=== PATIENT | male | born 1955 | race Caucasian/White ===

== ENCOUNTER 2018-03-05 14:04 | Inpatient (IN) | payer OTHER ==
[~2018-03-05] VITALS: Ht 172.7 cm; Wt 86.8 kg
[2018-03-05 15:04] LABS: ABSOLUTE BASOPHIL COUNT 0 /CUMM (0.0-0.2); ABSOLUTE EOSINOPHIL COUNT 0.1 /CUMM (0.0-0.7); ABSOLUTE GRANULOCYTE CT 3.6 /CUMM (1.4-6.5); ABSOLUTE LYMPH COUNT 1.3 /CUMM (1.2-3.4); ABSOLUTE MONOCYTE COUNT 0.4 /CUMM (0.10-0.60); BASOPHIL % 0.7 % (0.0-2.0); EOSINOPHIL % 1.9 % (0-5); GRANULOCYTE % 65.5 % (42.2-75.2); HEMATOCRIT 39.4 % (42-52); MEAN CORPUSCULAR HGB 33.4 PG (27.0-31.0); MEAN CORPUSCULAR HGB CONC 33.7 G/DL (33.0-37.0); MEAN CORPUSCULAR VOLUME 99.1 FL (80.0-94.0); MEAN PLATELET VOLUME 7.3 FL (7.4-10.4); PLATELET COUNT 267 /CUMM (130-400); RBC DISTRIBUTION WIDTH 15.9 % (11.5-14.5); RED BLOOD CELL CT 3.98 /CUMM (4.70-6.10); WHITE BLOOD CELL COUNT 5.5 /CUMM (4.8-10.8)
[2018-03-05 16:31] VITALS: BP 154/84
[2018-03-05 18:47] VITALS: BP 188/94
[2018-03-05] MEDS ORDERED: PROAIR HFA8.5 GM INH (18:51)
[2018-03-05] MEDS ORDERED: SERTRALINE HCL100 MG PO (18:56)
--- NOTE | 2018-03-05 21:05 | ED GENERAL ADULT ---
History of Present Illness General Chief Complaint: Psychiatric Related Complaint Stated Complaint: WANTS TO DETOX FROM ALCOHOL Vital Signs & Intake/Output Vital Signs & Intake/Output Vital Signs Date Time Temp Pulse Resp B/P B/P Pulse O2 O2 Flow FiO2 Mean Ox Delivery Rate 07 1322 97.9 64 18 153/93 07/05 1316 97.9 64 18 152/93 97 07/05 1125 98.0 71 18 144/77 07/05 1123 98.0 71 18 144/77 95 07/05 0900 98.2 77 20 134/70 07/05 0900 98.2 77 20 134/70 96 Room Air 07/05 0700 97.3 86 18 170/90 07/05 0659 98.2 86 18 170/90 97 Room Air 07/05 0400 98.3 79 18 173/95 07/05 0400 98.3 79 18 173/95 97 Room Air 07/05 0038 98.3 79 24 164/84 98 Room Air 07/05 0013 98.3 79 18 164/84 07/04 2214 98.4 90 18 180/93 99 Room Air 07/04 2213 98.4 90 18 180/93 07/04 1847 99.1 76 20 188/94 07/04 1841 99.1 76 20 188/94 98 Room Air 07/04 1631 99.3 74 22 154/84 07/04 1629 99.3 74 22 154/84 95 Room Air 07/04 1537 95 Room Air Room Air ED Intake and Output 07/ 0000 07/04 1200 Intake Total 60 Output Total Balance 60 Intake, Oral 60 Patient 195 lb Weight Weight Reported by Patient Measurement Method Allergies Coded Allergies: No Known Allergies (03/05/18) Reconcile Medications Albuterol Sulfate (Proair Hfa) 90 MCG HFA.AER.AD 2 PUF INH Q4-6 PRN PRN BREATHING (Reported) Amlodipine Besylate 5 MG TABLET 5 MG PO DAILY BLOOD PRESSURE . Folic Acid 1 MG TABLET 1 MG PO DAILY ETOH . LORazepam (Ativan) 1 MG TAB 1 TAB PO BID ETOH DETOX TAKE ONE PILL TONIGHT 03/08/2018 ON 03/09/2018, TAKE ONE PILL IN AM, ONE AT NIGHT ON 03/10/2018, TAKE ONE PILL IN AM AND THEN STOP. Multivitamin (One Daily Multivitamin) 1 EACH TABLET 1 TAB PO DAILY ETOH . Sertraline HCl 100 MG TABLET 1 TAB PO DAILY UNKNOWN (Reported) Thiamine HCl (Vitamin B-1) 100 MG TABLET 100 MG PO DAILY ETOH DETOX . Triage Note: PT REQUEST DETOX FROM ETOH. STATES LAST DRINK 2 DAYS AGO. PT STATES HX OF WITHDRAWL SEIZURES. DENIES SI/HI HPI: 62-year-old male with history of EtOH abuse presenting for EtOH detox. Reports that on average he drinks 1 pint of vodka daily./Drink was 2 days ago. Patient has a history of withdrawal seizures. No history of DTs. Denies any seizures in the last 2 days. Denies SI or HI. Denies pain or trauma. (Torie Conti) Past History Travel History Traveled to [place] past 21 day No Medical History Musculoskeletal: BACK PAIN Psychosocial History What is your primary language Lithuanian Tobacco Use: Never used ETOH Use: alcoholic Illicit Drug Use: denies illicit drug use (Torie Conti) Progress Plan of Care: Orders Procedure Date/time Status Regular Diet 03/06 D Active Misc Message 03/06 145 Active ED Holding Orders 03/06 145 Active Vital Signs 03/06 145 Active Code Status 03/06 145 Active Admit to inpatient 03/06 1450 Active Pathway - chart 03/06 0807 Active CASE MANAGEMENT CONSULT 03/05 2316 Active Current Medications Sig/Pamella Start time Last Medication Dose Stop Time Status Admin Lorazepam 2 MG Q2P PRN 03/06 0815 UNVr 03/06 (Ativan) 1325 Lorazepam 1 MG Q2P PRN 03/06 0815 UNVr (Ativan) Albuterol Sulfate 2 PUF Q4 03/06 0200 UNVr 03/06 (Ventolin) 1325 Laboratory Tests 03/06/18 0400: Urine Opiates Screen < 100, Methadone Screen 45, Barbiturate Screen < 60, Ur Phencyclidine Scrn < 6.00, Amphetamines Screen < 100, U Benzodiazepines Scrn > 800 H, Urine Cocaine Screen < 50, Urine Cannabis Screen < 5.00 03/05/18 1455: Anion Gap 14, Estimated GFR > 60, BUN/Creatinine Ratio 15.0, Glucose 91, Calcium 9.2, Magnesium 1.8, Total Bilirubin 0.4, AST 100 H, ALT 58, Alkaline Phosphatase 117, Total Protein 7.4, Albumin 4.2, Globulin 3.2, Albumin/Globulin Ratio 1.3, CBC w Diff NO MAN DIFF REQ, RBC 3.98 L, MCV 99.1 H, MCH 33.4 H, MCHC 33.7, RDW 15.9 H, MPV 7.3 L, Gran % 65.5, Lymphocytes % 23.9, Monocytes % 8.0, Eosinophils % 1.9, Basophils % 0.7, Absolute Granulocytes 3.6, Absolute Lymphocytes 1.3, Absolute Monocytes 0.4, Absolute Eosinophils 0.1, Absolute Basophils 0, Serum Alcohol 97.0 (Torie Conti) Comments: 03/06/18 7:00am pt signed out to me by dr pak at shift changeover. (Lou GOOD,Fuentes Nichols) Departure Departure Condition: Stable Referrals: Chris GOOD,Nata Meléndez (PCP/Family) Departure Forms: Customer Survey General Discharge Information Prescriptions: Current Visit Scripts LORazepam (Ativan) 1 TAB PO BID #4 TAB TAKE ONE PILL TONIGHT 03/08/2018 ON 03/09/2018, TAKE ONE PILL IN AM, ONE AT NIGHT ON 03/10/2018, TAKE ONE PILL IN AM AND THEN STOP. Amlodipine Besylate 5 MG PO DAILY #30 TAB . Folic Acid 1 MG PO DAILY #30 TAB . Thiamine HCl (Vitamin B-1) 100 MG PO DAILY #30 TAB . Multivitamin (One Daily Multivitamin) 1 TAB PO DAILY #30 TAB . (Torie Conti) Departure Comments pt to be signed out to dr. blake, 03/06/18, 7am. (Ady GOOD,Jerardo Grewal) Departure Disposition: STILL A PATIENT Clinical Impression Primary Impression: Alcohol withdrawal Admission Note Spoke With: Marciano GOOD,Kelsie Documentation of Exam: Documentation of any treatments & extenuating circumstances including Concerns Regarding Discharge (functional status, medication knowledge or non-compliance, living conditions, etc.) that warrant an admission rather than observation: Continued alcohol consumption places the patient at high risk of pancreatitis, pancreatic failure, liver failure and cirrhosis. In order to avoid this the patient will need to cease drinking alcohol. Patient's alcohol use places pt at high risk of seizures and delirium tremens during cessation. Patient will be at high risk of withdrawal seizures and delirium tremens (both of which can be fatal) for up to 5 days after stopping alcohol. pt will require IV Ativan to prevent these complications. pt is therefore a very poor candidate for outpatient treatment given the above concerns and treatment needs. Pt will require a multiple day hospitalization. (Lou GOOD,Fuentes Nichols) Critical Care Note Critical Care Note Critical Care Time: 30-74 min (Fuentes Blake MD)
[2018-03-05 22:13] VITALS: BP 180/93
[2018-03-06] VITALS (13 sets, daily range): BP systolic 134–173; BP diastolic 70–100
--- NOTE | 2018-03-06 15:03 | History & Physical ---
Criss GOOD,Teodoro 03/06/18 1503: General Information and HPI History of Present Illness: Mr. Salcido is a 62-year-old male with past medical history of back pain, anxiety, and COPD who presents for alcohol withdrawal. Patient has had problems with drinking for about a year and is longest period of sobriety is 7 months. He drinks half a pint of vodka and 3 beers a day. His last drink was 3 days ago. He went to [facility] and they told him to come here to [place] to be admitted. He reports some anxiety but otherwise has no chest pain, shortness breath, nausea, vomiting, diarrhea, abdominal pain, or dysuria. He has a family history of alcoholism in his father and grandfather never smoked or used other drugs. Allergies/Medications Allergies: Coded Allergies: No Known Allergies (03/05/18) Past History Travel History Traveled to [place] past 21 day No Medical History Musculoskeletal: BACK PAIN Surgical History Surgical History: non-contributory Past Family/Social History Psychosocial History ETOH Use: alcoholic Illicit Drug Use: denies illicit drug use Review of Systems Review of Systems Constitutional: Reports: no symptoms. EENTM: Reports: no symptoms. Cardiovascular: Reports: no symptoms. Respiratory: Reports: no symptoms. GI: Reports: no symptoms. Genitourinary: Reports: no symptoms. Musculoskeletal: Reports: no symptoms. Skin: Reports: no symptoms. Neurological/Psychological: Reports: see HPI. Hematologic/Endocrine: Reports: no symptoms. Immunologic/Allergic: Reports: no symptoms. All Other Systems: Reviewed and Negative Exam & Diagnostic Data Last 24 Hrs of Vital Signs/I&O Vital Signs Date Time Temp Pulse Resp B/P B/P Pulse O2 O2 Flow FiO2 Mean Ox Delivery Rate 03/06 1522 98.0 70 20 140/80 / 1522 98.0 70 20 140/80 96 Room Air 07/05 1322 97.9 64 18 153/93 07/05 1316 97.9 64 18 152/93 97 /05 1125 98.0 71 18 144/77 07/05 1123 98.0 71 18 144/77 95 07/05 0900 98.2 77 20 134/70 07/05 0900 98.2 77 20 134/70 96 Room Air 07/05 0700 97.3 86 18 170/90 07/05 0659 98.2 86 18 170/90 97 Room Air 07/05 0400 98.3 79 18 173/95 07/ 0400 98.3 79 18 173/95 97 Room Air 07/ 0038 98.3 79 24 164/84 98 Room Air 07/ 0013 98.3 79 18 164/84 / 2214 98.4 90 18 180/93 99 Room Air 03/05 2213 98.4 90 18 180/93 / 1847 99.1 76 20 188/94 07/ 1841 99.1 76 20 188/94 98 Room Air 03/05 1631 99.3 74 22 154/84 07/ 1629 99.3 74 22 154/84 95 Room Air 03/05 1537 95 Room Air Room Air Intake & Output 03/06 1600 03/06 0800 03/06 0000 Intake Total 60 Output Total Balance 60 Intake, Oral 60 Physical Exam General Appearance Alert, Oriented X3, Cooperative, No Acute Distress Cardiovascular Regular Rate, Normal S1, Normal S2 Lungs Clear to Auscultation, Normal Air Movement Abdomen Normal Bowel Sounds, Soft, No Tenderness Extremities No Edema, Normal Pulses, No Tenderness/Swelling Last 24 Hrs of Labs/Renan: Laboratory Tests 03/06/18 0400: Urine Opiates Screen < 100, Methadone Screen 45, Barbiturate Screen < 60, Ur Phencyclidine Scrn < 6.00, Amphetamines Screen < 100, U Benzodiazepines Scrn > 800 H, Urine Cocaine Screen < 50, Urine Cannabis Screen < 5.00 Assessment/Plan Assessment: Mr. Salcido is a 62-year-old male with past medical history of back pain, anxiety, and COPD who presents for alcohol withdrawal. On presentation, vital signs were T 98.7, HR 73, RR 20, BP 133/80, saturating 96 % room air. Laboratories are significant for AST 100 otherwise normal CVC and BP. Alcohol level is 97 with positive benzodiazepines. He will be admitted to general medicine and treated for the following problems: 1. Alcohol withdrawal #Alcohol withdrawal: Patient is being admitted for alcohol withdrawal. His last drink was 3 days ago. -[facility] protocol -Alcoholic vitamins -Social work consult #Chronic medical problems: -Continue other home medications DVT prophylaxis with enoxaparin Regular diet Full code As Ranked By This Provider Problem List: 1. Alcohol withdrawal Core Measures/Misc (05/19) Acute Coronary Syndrome ACS Diagnosis: No Congestive Heart Failure Congestive Heart Failure Diagnosis No Cerebrovascular Accident CVA/TIA Diagnosis: No VTE (View Protocol) VTE Risk Factors Age>40 No Mechanical VTE Prophylaxis d/t N/A MechProphylax Ordered No VTE Pharm Prophylaxis d/t NA PharmProphylax ordered Sepsis (View protocol) Sepsis Present: No If YES complete Sepsis Event Note If YES complete Sepsis Event Note Carlton More MD 03/06/18 5559: General Information and HPI Allergies/Medications Home Med list Albuterol Sulfate (Proair Hfa) 90 MCG HFA.AER.AD 2 PUF INH Q4-6 PRN PRN BREATHING (Reported) Amlodipine Besylate 5 MG TABLET 5 MG PO DAILY BLOOD PRESSURE Folic Acid 1 MG TABLET 1 MG PO DAILY ETOH LORazepam (Ativan) 1 MG TAB 1 TAB PO BID ETOH DETOX TAKE ONE PILL TONIGHT 03/08/2018 ON 03/09/2018, TAKE ONE PILL IN AM, ONE AT NIGHT ON 03/10/2018, TAKE ONE PILL IN AM AND THEN STOP. Multivitamin (One Daily Multivitamin) 1 EACH TABLET 1 TAB PO DAILY ETOH Sertraline HCl 100 MG TABLET 1 TAB PO DAILY UNKNOWN (Reported) Thiamine HCl (Vitamin B-1) 100 MG TABLET 100 MG PO DAILY ETOH DETOX Core Measures/Misc (05/19) Sepsis (View protocol) If YES complete Sepsis Event Note If YES complete Sepsis Event Note Attending MD Review Statement Attending Statement Attending MD Statement: examined this patient, discuss w/resident/PA/LUMBER CARRIER, agreed w/resident/PA/LUMBER CARRIER, reviewed EMR data (avail), amended to note Attending Assessment/Plan: The patient is a 62 yo male with h/o COPD, anxiety, chronic back pain, ETOH dependance and h/o withdrawal who presented in the [place] ED today requesting detox. His primary MD had sent him in to [facility] and they declined to admit him. They advised him to come to [facility] for detox. The patient stated he had drank for many years, however only considered it to be a problem over the last 1 year or so. He does have a h/o elevated BP with withdrawal. He stated that he had a h/o a seizure once at home (not documented). Last drink was 2 days ago. Physical Exam: VS: T 97.9, P 64, R 18, BP 153/93, PO 97% HEENT: eyes- PERRLA, EOMI, non-icteric sclera matt- dry mucosa Neck: no bruits or JVD Chest: clear Cor: RRR nl S1, S2 w/o murm Abd: BS+, sl firm, liver edge sl firm, spleen non palpable Ext: no edema Neuro: alert & oriented x 3, non-focal exam mild tremor (post Ativan) Labs/Tests- as above Impression/Plan: #EtOH Dependence and Withdrawal- as above, patient requesting detox. Not clear if he has had a seizure in past. Plan: Admit to general medicine for detox. Ativan 2 mg q6h and prn by CIWA. Thiamine, MVI, folate as per protocol. Social Service Consult. #COPD- by history. Lungs are clear at present. Uses Albuterol. Plan: Continue Albuterol and follow. #Anxiety/Depression- has been on Sertraline. Plan: Continue Sertraline. #HTN- patient states had h/o increased BP with withdrawal, however has never been on chronic meds for such. Plan: Monitor BP- expect it will decrease as patient gets through withdrawal. Plan: Anti-hypertensives to be decided depending upon clinical course.
--- NOTE | 2018-03-06 22:44 | Admission Certification ---
Admission Certification Certification Statement - As attending physician, I certify that at the time of - admission, based on clinical presentation, severity of - symptoms, need for further diagnostic testing and - therapeutic interventions, and risk of adverse outcomes - without in-hospital treatment, in my clinical assessment, - this patient requires an acute hospital stay for a minimum - of two nights or longer. I have also considered psychsocial - factors such as support system, advanced age, financial - issues, cognitive issues, and failed out-patient treatments, - past re-admission history, safety of patient, and lack of - compliance as applicable. Specific rationale supporting this admission is: The patient came in via ED requesting alcohol detox. Has h/o ?seizure in past. Needs admit for close monitoring and Ativan/CIWA, thiamine, etc. Social service consult.
[2018-03-07 05:40] VITALS: BP 160/90
--- NOTE | 2018-03-07 08:01 | PN- Housestaff ---
See Addendum Subjective Follow-up For: alcohol detox/withdrawal Complaints: no complaints Subjective: Patient has no complaints this morning. He states he slept well. He did become hypertensive overnight to a blood pressure of 180/100. He denies any symptoms including headache vision changes. He denies fever, chills, chest pain, shortness of breath, abdominal pain. Review of Systems Constitutional: Reports: see HPI. Objective Last 24 Hrs of Vital Signs/I&O Vital Signs Date Time Temp Pulse Resp B/P B/P Pulse O2 O2 Flow FiO2 Mean Ox Delivery Rate 07 1341 98.4 66 20 120/72 97 Room Air 07/06 1232 67 180/100 07/06 0540 98.4 66 20 160/90 96 Room Air 07/05 2308 98.1 62 16 162/80 07/05 2200 97.6 70 19 140/70 07/05 2119 97.6 70 19 140/70 96 Room Air 07/05 1800 97.5 69 18 172/90 07/05 1756 97.5 69 19 172/90 96 Room Air 07/05 1710 97.4 64 16 170/100 98 Room Air 07/05 1522 98.0 70 20 140/80 07/05 1522 98.0 70 20 140/80 96 Room Air Intake & Output 07/06 1600 07/06 0800 07/06 0000 Intake Total 120 1275 Output Total 100 Balance 20 1275 Intake, Oral 120 1275 Number 1 Bowel Movements Output, Urine 100 Patient 191 lb Weight Weight Bed scale Measurement Method Physical Exam General Appearance: Alert, Oriented X3, Cooperative, No Acute Distress Skin: No Rashes Skin Temp/Moisture Exam: Warm/Dry HEENT: Atraumatic, PERRLA Neck: Supple Cardiovascular: Regular Rate, Normal S1, Normal S2, No Murmurs Lungs: Clear to Auscultation, Normal Air Movement Abdomen: Normal Bowel Sounds, No Tenderness, mildly distended Neurological: slight tremor with bilateral arm extension Extremities: No Edema, Normal Pulses Assessment/Plan Assessment: 62-year-old male with past medical history significant for alcohol abuse, anxiety, COPD, and back pain admitted for alcohol withdrawal/alcohol detox. Patient reports a prior history of sobriety of 7 months before this recent relapse. He states he has a lot of stress at home with his child and that he began consuming beer and vodka; half a pint of vodka and a 6 pack of beer per day. #EtOH Withdrawal/detox -CIWA 14 at admission; 0 overnight -thiamine/folate/multivitamin #Elevated BP-likely related to etoh withdrawal -Amlodipine 5mg daily #Chronic illnesses -continue home medications DVT prophylaxis: ALPS/Ambulation/Lovenox Problem List: 1. Alcohol withdrawal Pain Ratin Pain Location: none Pain Goal: Remain pain free Pain Plan: see a/p Tomorrow's Labs & Rationales: none
[2018-03-07 13:41] VITALS: BP 120/72
[2018-03-07 21:16] VITALS: BP 132/68
[2018-03-07 21:19] VITALS: BP 132/68
[2018-03-08 06:13] VITALS: BP 148/90
--- NOTE | 2018-03-08 08:48 | PN- Housestaff ---
Sarah Amin 03/08/18 0837: Subjective Follow-up For: Alcohol withdrawal Complaints: no complaints Subjective: Pt. seen and examined at bedside. Patient has no c/o today. Denies anxiety, irritability, cravings, fever, night sweats, chills, is tolerating his diet. Pt. states he prefers to be on PRN ativan, so this way he only uses the minimum dose required. Review of Systems Constitutional: Denies: no symptoms, chills, diaphoresis, fever. EENTM: Denies: visual changes. Cardiovascular: Denies: chest pain, palpitations. Respiratory: Denies: cough, short of breath. Gastrointestinal: Denies: abdominal pain, constipation, diarrhea, nausea, vomiting. Neurological/Psychological: Denies: anxiety, confusion, emotional problems, tingling. Objective Last 24 Hrs of Vital Signs/I&O Vital Signs Date Time Temp Pulse Resp B/P B/P Pulse O2 O2 Flow FiO2 Mean Ox Delivery Rate 03/08 1621 97.7 67 18 134/76 03/08 1422 97.7 67 18 134/76 97 Room Air 03/08 0841 70 132/74 03/08 0800 Room Air 03/08 0613 98.1 56 18 148/90 96 Room Air 03/07 2119 98.0 68 132/68 97 Room Air 03/07 2116 98.0 68 18 132/68 97 Room Air Intake & Output 03/08 1600 03/08 0800 03/08 0000 Intake Total 240 130 85 Output Total Balance 240 130 85 Intake, IV 10 10 Intake, Oral 240 120 75 Physical Exam General Appearance: Alert, Oriented X3, Cooperative Skin: No Rashes Neck: Supple, No LAD Cardiovascular: Regular Rate, Normal S1, Normal S2 Lungs: Clear to Auscultation, Normal Air Movement Abdomen: Normal Bowel Sounds, Soft, No Tenderness Neurological: Normal Gait, Normal Speech, patient has slight bowing of legs, able to walk heel-to-toe little unstable Assessment/Plan Assessment: 62-year-old male with past medical history significant for alcohol abuse, anxiety, COPD, and back pain admitted for alcohol withdrawal/alcohol detox. Patient reports a prior history of sobriety of 7 months before this recent relapse. He states he has a lot of stress at home with his child and that he began consuming beer and vodka; half a pint of vodka and a 6 pack of beer per day. #EtOH Withdrawal/detox -CIWA 14 at admission; ranging from 0-6 today, mainly 0 - patient required 2 doses today -thiamine/folate/multivitamin #Elevated BP-likely related to etoh withdrawal -Amlodipine 5mg daily #Chronic illnesses -continue home medications DVT prophylaxis: ALPS/Ambulation/Lovenox Problem List: 1. Alcohol withdrawal Pain Ratin Pain Location: n/a Pain Goal: Remain pain free Pain Plan: n/a Tomorrow's Labs & Rationales: none Radha Mckeon MD 03/08/18 1735: Attending MD Review Statement Attending Statement Attending MD Statement: examined this patient, discuss w/resident/PA/ICT DEVELOPMENT MANAGER, agreed w/resident/PA/ICT DEVELOPMENT MANAGER, reviewed EMR data (avail) Attending Assessment/Plan: 62M PMH COPD, anxiety, chronic back pain, ETOH dependance and h/o withdrawal admitted with alcohol withdrawal. Patient is alert, awake, no complaints, no tremors or tongue fasciculations, stable vitals, no signs of withdrawal. Requiring PRN Ativan 1-2 times per day. Wants to go home. 1. Alcohol withdrawal, uncomplicated Plan - Stable for discharge home - Ativan 1mg PO, once , twice tomorrow, once Saturday, then stop - Follow up with IOP on discharge - Continue home medications
[2018-03-08 14:22] VITALS: BP 134/76
[2018-03-08 16:21] VITALS: BP 134/76
[2018-03-08] MEDS ORDERED: ONE DAILY MULT1 EAC2 PO (16:53)
[2018-03-08] MEDS ORDERED: VITAMIN B-1100 MG PO (16:53)
[2018-03-08] MEDS ORDERED: ATIVAN1 M1 PO ×2 (16:53→17:09)
[2018-03-08] MEDS ORDERED: FOLIC ACID1 M1 PO (16:53)
[2018-03-08] MEDS ORDERED: AMLODIPINE BESYL5 M1 PO (16:53)
--- NOTE | 2018-03-08 16:55 | Patient Discharge Instructions ---
Discharge Instructions General Discharge Information Special Instructions: PLEASE COMPLETE THE ATIVAN TAPER. PLEASE FOLLOW UP WITH PCP WITHIN 7 DAYS OF DISCHARGE. PLEASE DO NOT DRINK WHILE TAKING ATIVAN. Acute Coronary Syndrome Inclusion Criteria At DC or during hospital stay patient has or had the following: ACS DIAGNOSIS No Discharge Core Measures Meds if any: Prescribed or Continued at Discharge Meds if any: NOT Prescribed or Continued at Discharge Congestive Heart Failure Inclusion Criteria At DC or during hospital stay patient has or had the following: CHF DIAGNOSIS No Discharge Core Measures Meds if any: Prescribed or Continued at Discharge Meds if any: NOT Prescribed or Continued at Discharge Cerebrovascular accident Inclusion Criteria At DC or during hospital stay patient has or had the following: CVA/TIA Diagnosis No Discharge Core Measures Meds if any: Prescribed or Continued at Discharge Meds if any: NOT Prescribed or Continued at Discharge Venous thromboembolism Inclusion Criteria VTE Diagnosis No VTE Type NONE VTE Confirmed by (Test) NONE Discharge Core Measures - Per Current guidelines, there needs to be overlap - treatment for the first 5 days of Warfarin therapy. - If discharged on Warfarin prior to 5 days of - overlap therapy, the patient will need to be - assessed for post discharge needs including - *Post discharge parental anticoagulation - *Warfarin and/or parental anticoagulation education - *Follow up date to check INR post discharge At least 5 days overlap therapy as Inpatient No Meds if any: Prescribed or Continued at Discharge Note: Overlap Therapy is Warfarin and Anticoagulant Meds if any: NOT Prescribed or Continued at Discharge
[2018-03-10] MEDS ORDERED: ONE DAILY MULT1 EAC2 PO (13:36)
[2018-03-10] MEDS ORDERED: AMLODIPINE BESYL5 M1 PO (13:36)
[2018-03-10] MEDS ORDERED: FOLIC ACID1 M1 PO (13:36)
[2018-03-10] MEDS ORDERED: VITAMIN B-1100 MG PO (13:36)
== END 2018-03-08 18:37 | DRG 775 ==
LOC: ERH 14:04 → ERHI 03-06 14:50 → 2NB 03-06 14:50 → ENRESERV 03-06 16:25 → ENTRNSPT 03-06 17:21 → EDTRNSPTSTS 03-06 17:30 → 2NB 03-06 17:48 → CMPTRNSPT 03-06 17:57 → ENPENDDIS 03-08 17:36 → 2NB 03-08 18:37
PROVIDERS: Physician Assistant Medical
DX: F10.239 Alcohol dependence with withdrawal, unspecified (principal); M54.9 Dorsalgia, unspecified; J44.9 Chronic obstructive pulmonary disease, unspecified; F41.9 Anxiety disorder, unspecified; F32.9 Major depressive disorder, single episode, unspecified; I10 Essential (primary) hypertension; G89.29 Other chronic pain
CPT/HCPCS: 2NBSP; 80307; G0480; J1650; J3490